=== PATIENT | female | born 1980 | race Caucasian/White ===

== ENCOUNTER 2018-01-06 13:58 | Emergency (ER) | payer OTHER ==
[2018-01-06 14:02] VITALS: BP 135/87; TEMP 98.8; BMI 37.9
[2018-01-06] MEDS ORDERED: ROCEPHIN IM STA (14:43)
[2018-01-06] MEDS ORDERED: LIDOCAINE HCL 1% SDV IM STA (14:43)
[2018-01-06] MEDS ORDERED: NORCO 10-325 PO STA (14:43)
--- NOTE | 2018-01-06 15:10 | ED.PDOC ---
General ED Provider: Dr. JEAN PIERRE BHAT Chief Complaint: Abdominal Pain Stated Complaint: suprapubic pain Time Seen by Physician: 14:00 Mode of Arrival: Walk-In Information Source: Patient Exam Limitations: No limitations Nursing and Triage Documentation Reviewed and Agree: Yes Reviewed sepsis parameters & appropriate labs ordered?: Yes System Inflammatory Response Syndrome: Not Applicable Sepsis Protocol: For patient's 13 years and over: Temp is 96.8 and below OR 101 and greater Pulse >90 BPM Resp >20/minute Acutely Altered Mental Status Are patient's symptoms suggestive of a new infection, such as: -Pneumonia -Skin, Soft Tissue -Endocarditis -UTI -Bone, Joint Infection -Implantable Device -Acute Abdominal Infection -Wound Infection -Meningitis -Blood Stream Catheter Infection -Unknown System Inflammatory Response Syndrome: Not Applicable Review of Systems - Review Of Systems Constitutional: Reports: No symptoms Eyes: Reports: No symptoms Ears, Nose, Mouth, Throat: Reports: No symptoms Respiratory: Reports: No symptoms Cardiac: Reports: No symptoms GI: Reports: No symptoms : Reports: Dysuria, Frequency Musculoskeletal: Reports: No symptoms Skin: Reports: No symptoms Neurological: Reports: No symptoms Endocrine: Reports: No symptoms Hematologic/Lymphatic: Reports: No symptoms All Other Systems: Reviewed and Negative Past Medical History - Past Medical History Previously Healthy: Yes Endocrine: Reports: None Cardiovascular: Reports: None Respiratory: Reports: Asthma Hematological: Reports: Anemia Gastrointestinal: Reports: None Genitourinary: Reports: None Neuro/Psych: Reports: None Musculoskeletal: Reports: None Cancer: Reports: None Last Menstrual Period: 12/16/17 - Surgical History General Surgical History: Reports: Cholecystectomy, Tonsillectomy - Family History Family History: Reports: Unknown - Social History Smoking Status: Never smoker Hx Substance Use: No Alcohol Screening: None Physical Exam - Physical Exam Appearance: Well-appearing, No pain distress, Well-nourished Eyes: KAMINI, EOMI, Conjunctiva clear ENT: Ears normal, Nose normal, Oropharynx normal Respiratory: Airway patent, Breath sounds clear, Breath sounds equal, Respirations nonlabored Cardiovascular: RRR, Pulses normal, No rub, No murmur GI/: Soft, Nontender, No masses, Bowel sounds normal, No Organomegaly Musculoskeletal: Normal strength, ROM intact, No edema, No calf tenderness Skin: Warm, Dry, Normal color Neurological: Sensation intact, Motor intact, Reflexes intact, Cranial nerves intact, Alert, Oriented Psychiatric: Affect appropriate, Mood appropriate Critical Care Note - Critical Care Note Total Time (mins): 0 Course - Course Orders, Labs, Meds: Lab Review 01/06/18 14:10 Urine Color Yellow Urine Clarity Slightly Urine pH 7.0 Ur Specific [place] 1.025 Urine Protein Negative Urine Glucose (UA) Negative Urine Ketones Negative Urine Blood 2+ Urine Nitrite Negative Urine Bilirubin Negative Urine Urobilinogen 1.0 Ur Leukocyte Esterase 1+ Urine Microscopic RBC 10-20 Urine Microscopic WBC 5-10 Ur Squamous Epith Cells 5-10 Urine Bacteria 1+ Urine Mucus 1+ Orders Category Date Time Status URINALYSIS C & S IF INDICATED Stat LAB 01/06/18 14:10 Completed URINE CULTURE Stat LAB 01/06/18 14:42 Received Ceftriaxone Sodium [Rocephin] MEDS 01/06/18 14:43 Discontinued 1 gm IM ONCE STA Hydrocodone Bit/Acetaminophen [[place] 10-325] MEDS 01/06/18 14:43 Discontinued 1 tab PO ONCE STA Lidocaine HCl/Pf [Lidocaine HCl 1% Sdv] MEDS 01/06/18 14:43 Discontinued 2.1 ml IM ONCE STA Medications Discontinued Medications Generic Name Dose Route Start Last Admin Trade Name Freq PRN Reason Stop Dose Admin Hydrocodone Bitart/Acetaminophen 1 tab 01/06/18 14:43 01/06/18 14:57 [place] 10-325 PO 01/06/18 14:44 1 tab ONCE STA Administration Ceftriaxone Sodium 1 gm 01/06/18 14:43 01/06/18 14:58 Rocephin IM 01/06/18 14:44 1 gm ONCE STA Administration Lidocaine HCl 2.1 ml 01/06/18 14:43 01/06/18 14:58 Lidocaine Hcl 1% Sdv IM 01/06/18 14:44 2.1 ml ONCE STA Administration Vital Signs: Temp Pulse Resp BP Pulse Ox 01/06/18 13:59 98.8 F 102 H 18 135/87 98 Departure - Departure Time of Disposition: 15:09 Disposition: HOME SELF-CARE Discharge Problem: Abdominal pain UTI (urinary tract infection) Qualifiers: Urinary tract infection type: site unspecified Instructions: Urinary Tract Infection in Women (ED) Condition: Good Pt referred to PMD for follow-up: Yes IPMP verified?: No Additional Instructions: Please call your Family Physician as soon as possible to schedule a follow-up appointment. Allergies/Adverse Reactions: Allergies azithromycin [From Zithromax Z-Lobo] Allergy (Severe, Verified 01/06/18 14:02) tongue swelling cephalexin monohydrate [From Keflex] Allergy (Severe, Verified 01/06/18 14:02) rash coconut oil Allergy (Severe, Verified 01/06/18 14:02) emesis pineapple [Pineapple] Allergy (Severe, Verified 01/06/18 14:02) emesis moxifloxacin [From Avelox] Adverse Reaction (Verified 01/06/18 14:02) Penicillins Adverse Reaction (Verified 01/06/18 14:02) Home Medications: Ambulatory Orders 1 [No Reported Medications] 01/06/18
== END 2018-01-06 15:16 | disposition home or self-care (01) ==
LOC: ED 13:58
DX: N39.0 Urinary tract infection, site not specified (principal); R10.30 Lower abdominal pain, unspecified
CPT/HCPCS: 81001; 87086; 87186; 96372; 99283

== ENCOUNTER 2019-05-30 10:59 | Observation (INO) ==
[2019-05-30 11:04] VITALS: BMI 37.5
[2019-05-30 11:50] LABS: URINE PREGNANCY TEST NEGATIVE (NEGATIVE)
--- NOTE | 2019-05-30 13:52 | ED.PDOC ---
General ED Provider: Dr. JEAN PIERRE BHAT Chief Complaint: Cough Stated Complaint: cough Time Seen by Physician: 11:00 Mode of Arrival: Walk-In Information Source: Patient Exam Limitations: No limitations Primary Care Provider: HANNA GUERRERO Nursing and Triage Documentation Reviewed and Agree: Yes Does patient meet sepsis criteria?: No System Inflammatory Response Syndrome: Not Applicable Sepsis Protocol: For patient's 13 years and over: Temp is 96.8 and below OR 101 and greater Pulse >90 BPM Resp >20/minute Acutely Altered Mental Status Are patient's symptoms suggestive of a new infection, such as: -Pneumonia -Skin, Soft Tissue -Endocarditis -UTI -Bone, Joint Infection -Implantable Device -Acute Abdominal Infection -Wound Infection -Meningitis -Blood Stream Catheter Infection -Unknown Respiratory Complaint Exam - Respiratory Complaint/Exam Onset/Duration: 1 day Symptoms Are: Still present Timing: Intermittent Initial Severity: Moderate Current Severity: Mild Location: Nose, Throat, Chest Character: Reports: Non-productive cough Aggravating: Reports: None Alleviating: Reports: Spontaneous resolution Associated Signs and Symptoms: Reports: URI, Nasal congestion. Denies: Rapid breathing, Dyspnea, Fever, Chills, Chest pain, Pleuritic chest pain, Wheezing, Hemoptysis, Dizziness, Calf pain, Calf swelling, Edema, Hoarseness, Sinus discomfort, Vomiting, Sore throat, Weight loss, Decreased oral intake, Increased thirst, Increased appetite, Increased urination Related History: Reports: Similar episode History of Healthcare-Acquired Pneumonia: No Related Surgical History: Reports: None Pulmonary Embolism Risk Factors: None Cardiac Risk Factors: Reports: None Pseudomonas Risk Factors: Reports: None Tuberculosis Risk Factors: Reports: None Status Asthmaticus Risk Factors: Reports: None Home Oxygen Use: No Recent Stress Test: No Recent Echo/LV Function: No Current Antibiotic Use: No Current Asthma Medication Use: No Respiratory Distress: None Inadequate Respiratory Effort: No Dysphagia Present: No Stridor Present: No JVD Present: No Accessory Muscle Use: No Retractions: Not Present Diminished Breath Sounds: No Sinus Tenderness: None Grunting Respirations: No Kussmaul Respirations: No Differential Diagnoses: Asthma, CHF, Pneumonia, Bronchitis, Lower Resp. Infection Quality Indicators For Pneumonia: SpO2 assessed, Empiric Antibiotic Rx, Vital signs, Mental status assessed Non-Traumatic Chest Pain Syncope: EKG Performed Review of Systems - Review Of Systems Constitutional: Reports: Chills, Fever, Malaise, Loss of appetite Eyes: Reports: No symptoms Ears, Nose, Mouth, Throat: Reports: No symptoms Respiratory: Reports: Cough Cardiac: Reports: No symptoms GI: Reports: No symptoms : Reports: No symptoms Musculoskeletal: Reports: No symptoms Skin: Reports: No symptoms Neurological: Reports: No symptoms Endocrine: Reports: No symptoms Hematologic/Lymphatic: Reports: No symptoms All Other Systems: Reviewed and Negative Past Medical History - Past Medical History Previously Healthy: Yes Endocrine: Reports: None Cardiovascular: Reports: None Respiratory: Reports: Asthma Hematological: Reports: Anemia Gastrointestinal: Reports: None Genitourinary: Reports: None Neuro/Psych: Reports: None Musculoskeletal: Reports: None Cancer: Reports: None Last Menstrual Period: may 10 - still on it. - Surgical History General Surgical History: Reports: Cholecystectomy, Tonsillectomy - Family History Family History: Reports: Unknown - Social History Smoking Status: Never smoker Hx Substance Use: No Alcohol Screening: None - Immunizations Tetanus Shot up to Date: Yes Physical Exam - Physical Exam Appearance: Ill-appearing Ill-appearing: Mild Pain Distress: Mild Eyes: KAMINI, EOMI, Conjunctiva clear ENT: Ears normal, Nose normal, Oropharynx normal Respiratory: Rhonchi Cardiovascular: RRR, Pulses normal, No rub, No murmur GI/: Soft, Nontender, No masses, Bowel sounds normal, No Organomegaly Musculoskeletal: Normal strength, ROM intact, No edema, No calf tenderness Skin: Warm, Dry, Normal color Neurological: Sensation intact, Motor intact, Reflexes intact, Cranial nerves intact, Alert, Oriented Psychiatric: Affect appropriate, Mood appropriate Interpretation - Radiology Interpretation Radiology Interpretation By: Radiologist Radiology Results: Positive (pneumonia, breast mass) Physician Notification - Case Discussed Physician Notified: [email or web address] Time of Notification: 16:21 Admit/Transition Orders Entered by ED Provider: Yes Admit To: Inpatient Critical Care Note - Critical Care Note Total Time (mins): 0 Course - Course Hematology/Chemistry: 05/30/19 11:27 05/30/19 11:27 Orders, Labs, Meds: Lab Review 05/30/19 05/30/19 05/30/19 11:22 11:27 11:27 WBC 6.82 RBC 4.24 Hgb 12.4 Hct 37.8 MCV 89.2 MCH 29.2 MCHC 32.8 RDW Coeff of [place] 13.4 Plt Count 253 Immature Gran % (Auto) 0.4 Neut % (Auto) 66.2 Lymph % (Auto) 22.6 [place] % (Auto) 8.9 Eos % (Auto) 1.5 Baso % (Auto) 0.4 Immature Gran # (Auto) 0.0 Neut # (Auto) 4.5 Lymph # (Auto) 1.5 [place] # (Auto) 0.6 Eos # (Auto) 0.1 Baso # (Auto) 0.0 Puncture Site O2 Saturation ABG pH ABG pCO2 ABG pO2 ABG HCO3 ABG Total CO2 ABG Base Excess FiO2 % Sodium 135.9 Potassium 4.05 Chloride 104.4 Carbon Dioxide 26.6 Anion Gap 8.95 BUN 9.0 Creatinine 0.68 Estimated GFR (MDRD) 96.00 BUN/Creatinine Ratio 13.23 Glucose 112.0 H Lactic Acid Calcium 8.72 Total Bilirubin 0.78 AST 76.9 H ALT 88.7 H Alkaline Phosphatase 155.7 H Total Protein 7.79 Albumin 4.15 Globulin 3.64 Albumin/Globulin Ratio 1.14 Procalcitonin Urine Color Urine Clarity Urine pH Ur Specific [place] Urine Protein Urine Glucose (UA) Urine Ketones Urine Blood Urine Nitrite Urine Bilirubin Urine Urobilinogen Ur Leukocyte Esterase Urine Microscopic WBC Ur Squamous Epith Cells Urine Bacteria Urine Test Influ A Molecular Assay Negative by naat Influ B Molecular Assay Negative by naat 05/30/19 05/30/19 05/30/19 11:27 11:27 11:32 WBC RBC Hgb Hct MCV MCH MCHC RDW Coeff of [place] Plt Count Immature Gran % (Auto) Neut % (Auto) Lymph % (Auto) [place] % (Auto) Eos % (Auto) Baso % (Auto) Immature Gran # (Auto) Neut # (Auto) Lymph # (Auto) [place] # (Auto) Eos # (Auto) Baso # (Auto) Puncture Site O2 Saturation ABG pH ABG pCO2 ABG pO2 ABG HCO3 ABG Total CO2 ABG Base Excess FiO2 % Sodium Potassium Chloride Carbon Dioxide Anion Gap BUN Creatinine Estimated GFR (MDRD) BUN/Creatinine Ratio Glucose Lactic Acid 0.76 Calcium Total Bilirubin AST ALT Alkaline Phosphatase Total Protein Albumin Globulin Albumin/Globulin Ratio Procalcitonin 0.07 Urine Color Yellow Urine Clarity Clear Urine pH 7.5 Ur Specific [place] 1.020 Urine Protein Trace Urine Glucose (UA) Negative Urine Ketones Negative Urine Blood Negative Urine Nitrite Negative Urine Bilirubin Negative Urine Urobilinogen 1.0 Ur Leukocyte Esterase 1+ Urine Microscopic WBC 5-10 Ur Squamous Epith Cells 10-20 Urine Bacteria 1+ Urine Test Influ A Molecular Assay Influ B Molecular Assay 05/30/19 05/30/19 11:32 15:19 WBC RBC Hgb Hct MCV MCH MCHC RDW Coeff of [place] Plt Count Immature Gran % (Auto) Neut % (Auto) Lymph % (Auto) [place] % (Auto) Eos % (Auto) Baso % (Auto) Immature Gran # (Auto) Neut # (Auto) Lymph # (Auto) [place] # (Auto) Eos # (Auto) Baso # (Auto) Puncture Site Rb O2 Saturation 95.0 ABG pH 7.451 H ABG pCO2 31.9 L ABG pO2 69.0 L ABG HCO3 22.2 ABG Total CO2 23 ABG Base Excess -2 FiO2 % 21.0 Sodium Potassium Chloride Carbon Dioxide Anion Gap BUN Creatinine Estimated GFR (MDRD) BUN/Creatinine Ratio Glucose Lactic Acid Calcium Total Bilirubin AST ALT Alkaline Phosphatase Total Protein Albumin Globulin Albumin/Globulin Ratio Procalcitonin Urine Color Urine Clarity Urine pH Ur Specific [place] Urine Protein Urine Glucose (UA) Urine Ketones Urine Blood Urine Nitrite Urine Bilirubin Urine Urobilinogen Ur Leukocyte Esterase Urine Microscopic WBC Ur Squamous Epith Cells Urine Bacteria Urine Test Negative Influ A Molecular Assay Influ B Molecular Assay Orders Category Date Time Status ABG DRAW REQUEST Stat CARDIO 05/30/19 15:19 Ordered EKG-(IP & OP ONLY) DAILY CARDIO 05/31/19 06:00 Ordered EKG-(IP & OP ONLY) DAILY CARDIO 06/01/19 06:00 Ordered EKG-(IP & OP ONLY) DAILY CARDIO 06/02/19 06:00 Ordered NEBULIZER TREATMENT Routine CARDIO 05/30/19 16:17 Ordered INTAKE & OUTPUT Q8HR CARE 05/30/19 16:17 Ordered Neuro Check [NEUROLOGICAL CHECKS] Q4HR CARE 05/30/19 16:18 Ordered VITAL SIGNS Q4HR CARE 05/30/19 16:17 Ordered REGULAR DIET DIETARY 05/30/19 Dinner Ordered ABG Stat LAB 05/30/19 15:19 Completed BLOOD CULTURE (ED ONLY) Stat LAB 05/30/19 11:27 Received CBC W/ AUTO DIFF DAILY@0600 LAB 05/31/19 06:00 Ordered CBC W/ AUTO DIFF DAILY@0600 LAB 06/01/19 06:00 Ordered CBC W/ AUTO DIFF Stat LAB 05/30/19 11:27 Completed COMPREHENSIVE METABOLIC PANEL DAILY@0600 LAB 05/31/19 06:00 Ordered COMPREHENSIVE METABOLIC PANEL DAILY@0600 LAB 06/01/19 06:00 Ordered COMPREHENSIVE METABOLIC PANEL Stat LAB 05/30/19 11:27 Completed CREATINE KINASE Q8H LAB 05/30/19 22:30 Ordered CREATINE KINASE Q8H LAB 05/31/19 06:30 Ordered FLU A/B MOLECULAR Stat LAB 05/30/19 11:22 Completed LACTIC ACID Stat LAB 05/30/19 11:27 Completed MOLECULAR GROUP A STREP Stat LAB 05/30/19 11:22 Completed PROCALCITONIN Stat LAB 05/30/19 11:27 Completed TROPONIN I Q8H LAB 05/30/19 22:30 Ordered TROPONIN I Q8H LAB 05/31/19 06:30 Ordered URINALYSIS C & S IF INDICATED Stat LAB 05/30/19 11:32 Completed URINE CULTURE Stat LAB 05/30/19 11:32 Received URINE Stat LAB 05/30/19 11:32 Completed Ceftriaxone 1 gm Vial [Rocephin 1 gm Vial] MEDS 05/30/19 15:19 Discontinued 1 gm IV ONCE STA Ceftriaxone 500 mg Vial [Rocephin 500 mg Vial] 500 mg MEDS 05/30/19 20:00 Active 0.9 % Sodium Chloride [Sodium Chloride] 50 ml IV ONCE Ipratropium/Albuterol Neb [Duoneb] MEDS 05/30/19 18:00 Ordered 1 vial NEB RTQ6H Methylprednisolone Sod Succ/Pf [Solu-Medrol 40 mg] MEDS 05/30/19 16:16 Stat 40 mg IVP ONCE STA Sodium Chloride 0.9% [Sodium Chloride] 1,000 ml MEDS 05/30/19 16:30 Ordered IV 75 mls/hr Vancomycin HCl [Vancomycin] 1 gm MEDS 05/30/19 16:16 Ordered 0.9 % Sodium Chloride [Sodium Chloride] [address] CHEST W/O CONTRAST Stat RADS 05/30/19 13:51 Completed Medications Generic Name Dose Route Start Last Admin Trade Name Freq PRN Reason Stop Dose Admin Albuterol/Ipratropium 1 vial 05/30/19 18:00 Duoneb NEB RTQ6H BRIANA Ceftriaxone Sodium 500 mg/ 50 mls @ 75 mls/hr 05/30/19 20:00 Sodium Chloride IV 05/30/19 20:39 ONCE ONE Vancomycin HCl 1 gm/ Sodium 250 mls @ 250 mls/hr 05/30/19 16:16 Chloride IV 05/30/19 17:15 ONCE STA Sodium Chloride 1,000 mls @ 75 mls/hr 05/30/19 16:30 Sodium Chloride IV .[id number] [facility], [facility]–1983 Discontinued Medications Generic Name Dose Route Start Last Admin Trade Name Freq PRN Reason Stop Dose Admin Ceftriaxone Sodium 1 gm 05/30/19 15:19 05/30/19 16:08 Rocephin 1 Gm Vial IV 05/30/19 15:20 1 gm ONCE STA Administration Methylprednisolone Sodium Succinate 40 mg 05/30/19 16:16 Solu-Medrol 40 Mg IVP 05/30/19 16:17 ONCE STA Vital Signs: Temp Pulse Resp BP Pulse Ox 05/30/19 14:03 100.3 F H 05/30/19 10:59 101.2 F H 104 H 20 127/87 94 L Departure - Departure Time of Disposition: 16:21 Disposition: HOME SELF-CARE Discharge Problem: Cough Pneumonia Qualifiers: Pneumonia type: due to unspecified organism Laterality: right Lung location: lower lobe of lung Qualified Code(s): J18.1 - Lobar pneumonia, unspecified organism Instructions: Community Acquired Pneumonia (ED) Condition: Good Pt referred to PMD for follow-up: Yes IPMP verified?: No Allergies/Adverse Reactions: Allergies azithromycin [From Zithromax Z-Lobo] Allergy (Severe, Verified 08/13/18 17:13) tongue swelling cephalexin monohydrate [From Keflex] Allergy (Severe, Verified 08/13/18 17:13) rash coconut oil Allergy (Severe, Verified 08/13/18 17:13) emesis pineapple [Pineapple] Allergy (Severe, Verified 08/13/18 17:13) emesis moxifloxacin [From Avelox] Adverse Reaction (Verified 08/13/18 17:13) Penicillins Adverse Reaction (Verified 08/13/18 17:13) Home Medications: Ambulatory Orders 1 [No Reported Medications] 08/13/18
--- NOTE | 2019-05-30 14:40 | CT ---
EXAM: CT chest without contrast HISTORY: Cough, congestion, lump in the right breast COMPARISON: None TECHNIQUE: CT chest performed without intravenous contrast. Coronal and sagittal reformatted images obtained. FINDINGS: Thoracic inlet unremarkable. Heart normal in size. No pericardial effusion. Aorta zak l in caliber. Small hiatal hernia. Evaluation for lymphadenopathy limited without contrast. Mildly enlarged subcarinal lymph node measures 1.4 cm. The patient status post cholecystectomy. Granuloma tous calcification in the spleen. No acute abnormalities of the bones. Central airway patent. No p leural effusion or pneumothorax. Multifocal consolidation in the right lower lobe with areas of nodu larity. Consolidation in the lingula. IMPRESSION: 1. Multifocal consolidation involving the right lower lobe and lingula, most consistent with pneumon ia. CT chest follow-up is recommended in 3 months to ensure resolution, given associated areas of no dularity on the right 2. Mild mediastinal lymphadenopathy, nonspecific. Recommend attention on follow-up. 3. Follow-up diagnostic mammogram and ultrasound would be recommended to evaluate lump in right [address].
[2019-05-30] MEDS ORDERED: ROCEPHIN 1 GM VIAL IV STA (15:19)
[2019-05-30] MEDS ORDERED: VANCOMYCIN 1 GM in SODIUM CHLORIDE 250 ML IV STA (16:16)
[2019-05-30] MEDS ORDERED: SOLU-MEDROL 40 MG IVP STA (16:16)
[2019-05-30] MEDS: DUONEB NEB SCH ×2 (17:12→23:15)
[2019-05-30] MEDS: SODIUM CHLORIDE 1,000 ML IV SCH (19:20)
[2019-05-30] MEDS ORDERED: ROCEPHIN 500 MG VIAL 500 MG in SODIUM CHLORIDE 50 ML IV ONE (20:00)
[2019-05-30] MEDS ORDERED: TORADOL IVP PRN (20:06)
[2019-05-31] MEDS: DUONEB NEB SCH ×4 (04:50→22:23)
[2019-05-31] MEDS ORDERED: TYLENOL PO PRN (08:35)
[2019-05-31] MEDS: D5W IV SCH (09:30)
[2019-05-31] MEDS: LEVAQUIN IV SCH (09:30)
--- NOTE | 2019-05-31 09:44 | PCM.PROG ---
Attending Provider: ATTENDING PROVIDER[facility] This patient is seen with Lizz Gutierrez, Nurse Practitioner. DATE OF SERVICE: 05/31/19 SUBJECTIVE: This 39 year old WHITE/ F was hospitalized 05/30/19. The patient is resting comfortably. She had fever yesterday in ER of 101 and a low grade fever through the evening. She has been coughing for several days. She has no primary care provider. REVIEW OF SYSTEMS: CONSTITUTIONAL: No night sweats. No fatigue, malaise, lethargy. Fever. HEENT: Eyes: No visual changes. No eye pain. No eye discharge. ENT: No runny nose. No epistaxis. No sinus pain. No odynophagia. No congestion. RESPIRATORY: Cough, no congestion. No hemoptysis. No shortness of breath. CARDIOVASCULAR: No angina symptoms. No CHF symptoms. No atypical chest pain for CAD. No palpitations. No orthopnea.. GASTROINTESTINAL: No abdominal pain. No nausea or vomiting. No diarrhea or constipation. No hematemesis. No hematochezia. GENITOURINARY: No urgency. No frequency. No dysuria. No hematuria. No obstructive symptoms. No discharge. No pain. No significant abnormal bleeding. MUSCULOSKELETAL: No musculoskeletal pain; no joint swelling. NEUROLOGICAL: Awake, alert, oriented to time, place and person. No headache. No neck pain. No syncope. No seizures. No dizziness. PSYCHIATRIC: Not anxious. No depression. No suicidal thoughts. No homicidal thoughts. SKIN: No rash. No lesions. No wounds. ENDOCRINE: No unexplained weight loss. No weight gain. HEMATOLOGIC/LYMPHATIC: No anemia. No purpura. No petechiae. No prolonged or excessive bleeding. No palpable lymph nodes. PHYSICAL EXAMINATION: GENERAL: The patient is awake, alert and oriented, lying in bed in no distress. VITAL SIGNS: Temperature 98.0 F, Pulse 93, Respiratory Rate 20, BP 122/76, Pulse Ox 98% HEENT: Head normocephalic, atraumatic. Eyes: Extraocular muscles are intact. Pupils are equal, round and reactive to light and accommodation. Ears: No lesions. Nose appeared normal. Throat: No exudate or erythema. NECK: Supple. No JVD, no carotid bruit. No lymphadenopathy or thyromegaly. LUNGS: Diminished breath sounds. Rales on right. Clear to auscultation. Percussion note normal. Chest symmetrical. HEART: S1, S2, no S3. No murmurs. No cyanosis or clubbing. No ascites. Pulses: Dorsalis pedis and posterior tibial pulses +1 to +2 both sides. ABDOMEN: Soft. Non-tender. Bowel sounds active. No CVA tenderness. No mass felt. EXTREMITIES: No edema. Full range of motion of all extremities, equal. NEUROLOGIC: No focal deficit. Cranial nerves II through XII are grossly intact. No headache, no double vision or headache. SKIN: Not dry. Intact. Turgor-normal. LYMPHATIC: No palpable lymph nodes/no lymphedema. MUSCULOSKELETAL: Normal joints with no swelling. Muscle tone is normal. LAB REVIEW: 05/31/19 06:24 05/31/19 06:24 05/31/19 06:24: Sodium 136.8, Potassium 3.63, Chloride 106.0, Carbon Dioxide 24.0, Anion Gap 10.43, BUN 9.8, Creatinine 0.54 L, Estimated GFR (MDRD) 126.00, BUN/Creatinine Ratio 18.14, Glucose 165.5 H D, Calcium 8.80, Total Bilirubin 0.51, AST 43.6 H D, ALT 70.7 H, Alkaline Phosphatase 137.7 H, Total Creatine Kinase 113.6, Troponin I < 0.012, Total Protein 7.81, Albumin 4.05, Globulin 3.76, Albumin/Globulin Ratio 1.07 05/31/19 06:24: WBC 5.93, RBC 4.12 L, Hgb 11.8 L, Hct 36.6 L, MCV 88.8, MCH 28.6 , MCHC 32.2, RDW Coeff of [place]ida 13.3, Plt Count 244, Immature Gran % (Auto) 1.2, Neut % (Auto) 73.1, Lymph % (Auto) 16.4, [place] % (Auto) 9.1, Eos % (Auto) 0.0, Baso % (Auto) 0.2, Immature Gran # (Auto) 0.1, Neut # (Auto) 4.3, Lymph # (Auto ) 1.0, [place] # (Auto) 0.5, Eos # (Auto) 0.0, Baso # (Auto) 0.0 05/30/19 22:30: Total Creatine Kinase 148.4 H, CK-MB (CK-2) < 0.220, CK-MB (CK-2 ) % 0.1400, Troponin I < 0.012 05/30/19 15:19: Puncture Site Rb, O2 Saturation 95.0, ABG pH 7.451 H, ABG pCO2 31.9 L, ABG pO2 69.0 L, ABG HCO3 22.2, ABG Total CO2 23, ABG Base Excess -2, FiO2 % 21.0 05/30/19 11:32: Urine Test Negative 05/30/19 11:32: Urine Color Yellow, Urine Clarity Clear, Urine pH 7.5, Ur Specific [place] 1.020, Urine Protein Trace, Urine Glucose (UA) Negative, Urine Ketones Negative, Urine Blood Negative, Urine Nitrite Negative, Urine Bilirubin Negative, Urine Urobilinogen 1.0, Ur Leukocyte Esterase 1+, Urine Microscopic WBC 5-10, Ur Squamous Epith Cells 10-20, Urine Bacteria 1+ 05/30/19 11:27: Lactic Acid 0.76 05/30/19 11:27: Procalcitonin 0.07 05/30/19 11:27: Sodium 135.9, Potassium 4.05, Chloride 104.4, Carbon Dioxide 26.6, Anion Gap 8.95, BUN 9.0, Creatinine 0.68, Estimated GFR (MDRD) 96.00, BUN/ Creatinine Ratio 13.23, Glucose 112.0 H, Calcium 8.72, Total Bilirubin 0.78, AST 76.9 H, ALT 88.7 H, Alkaline Phosphatase 155.7 H, Total Protein 7.79, Albumin 4.15, Globulin 3.64, Albumin/Globulin Ratio 1.14 05/30/19 11:27: WBC 6.82, RBC 4.24, Hgb 12.4, Hct 37.8, MCV 89.2, MCH 29.2, MCHC 32.8, RDW Coeff of [place] 13.4, Plt Count 253, Immature Gran % (Auto) 0.4, Neut % (Auto) 66.2, Lymph % (Auto) 22.6, [place] % (Auto) 8.9, Eos % (Auto) 1.5, Baso % (Auto) 0.4, Immature Gran # (Auto) 0.0, Neut # (Auto) 4.5, Lymph # (Auto ) 1.5, [place] # (Auto) 0.6, Eos # (Auto) 0.1, Baso # (Auto) 0.0 05/30/19 11:22: Influ A Molecular Assay Negative by naat, Influ B Molecular Assay Negative by naat ASSESSMENT: Please see below. 1. Right lower lobe pneumonia 2. Fever 3. Right breast mass per CT. The patient stated she had lumpectomy right breast last year at [facility]. No mamogramy since 3. Abnormal U/A, culture pending. PLAN: 1. Levaquin 750mg IV daily 2. Solu-cortef 100mg IV Q 12 3. Stop IV fluids after this bag 4. Tussionex one teaspoon BID PRN 5. Tylenol 650mg for fever greater than 100 6. Toradol Q 8 hours PRN 7. Lipid panel Plan and coordination of the patient's care discussed in the presence of Smelter Liner and nurse. SCRIBED BY: Hayes WETZEL scribed while in presence of service performed by Dr. Chen/Lizz Gutierrez APRN on 05/31/19 ([id number])
[2019-05-31] MEDS: SOLU-CORTEF 100 MG IVP SCH ×2 (10:00→20:20)
[2019-05-31] MEDS: PROTONIX PO SCH (10:01)
[2019-05-31] MEDS: TORADOL IVP PRN ×2 (10:01→19:43)
[2019-05-31] MEDS: SODIUM CHLORIDE 1,000 ML IV SCH (10:22)
--- NOTE | 2019-05-31 13:10 | PN ---
DATE OF SERVICE: 05/30/19 SUBJECTIVE: Hospitalist patient admitted through the emergency room. 38 year old female came to the emergency room with cough and congestion, fever and chills. The patient had fever of 102. Radiographic findings suggestive of right sided pneumonia. The patient is obese, not in distress. She has a lot of allergies to a lot of antibiotics. Zithromax causes her to swell, tongue. Except for that rest of them all very minimal significance. ASSESSMENT: 1. Acute bronchitis/pneumonitis 2. History of smoking 3. Morbid obesity. PLAN: 1. Give IV antibiotics, steroids and NEBS. TIME SPENT: More than 30 minutes. Plan and coordination of the patient's care discussed in the presence of nurse. MILLIE
[2019-05-31] MEDS: TUSSIONEX PO PRN (13:51)
[2019-06-01] MEDS: DUONEB NEB SCH ×4 (04:50→23:50)
[2019-06-01] MEDS: PROTONIX PO SCH (05:37)
[2019-06-01] MEDS: TUSSIONEX PO PRN ×2 (05:40→20:27)
--- NOTE | 2019-06-01 07:35 | HP ---
DATE OF SERVICE: 05/30/19 HISTORY OF PRESENT ILLNESS: This is a 39-year-old white female who presents to the emergency room with cough and congestion for the past three days. She has been running a fever at home of up to 102. PAST MEDICAL HISTORY: Obesity History of right breast mass one year ago, status post lumpectomy She has no regular PCP, has not seen a regular PCP in about one year PAST SURGICAL HISTORY: Status post cholecystectomy Status post tonsillectomy, adenoidectomy Status post right lumpectomy which was benign REVIEW OF SYSTEMS: CONSTITUTIONAL: Positive for fever, chills and malaise. No night sweats. No lethargy. No fever or chills. HEENT: Eyes: No visual changes. No eye pain. No eye discharge. ENT: No runny nose. No epistaxis. No sinus pain. No sore throat. No odynophagia. No ear pain. No congestion. RESPIRATORY: Cough and shortness of breath. No hemoptysis. CARDIOVASCULAR: No angina symptoms. No CHF symptoms. No atypical chest pain for CAD. No palpitations. No PND. No orthopnea. GASTROINTESTINAL: No abdominal pain. No nausea or vomiting. No diarrhea or constipation. No hematemesis. No hematochezia. GENITOURINARY: No urgency. No frequency. No dysuria. No hematuria. No obstructive symptoms. No discharge. No pain. No significant abnormal bleeding. MUSCULOSKELETAL: No musculoskeletal pain. No joint swelling. No arthritis. NEUROLOGICAL: No headache. No neck pain. No syncope. No seizures. No dizziness. PSYCHIATRIC: Not anxious. No depression. No suicidal thoughts. No homicidal thoughts. SKIN: No rash. No lesions. No wounds. ENDOCRINE: No unexplained weight loss. No weight gain. HEMATOLOGIC/LYMPHATIC: No anemia. No purpura. No petechiae. No prolonged or excessive bleeding. No palpable lymph nodes. PERSONAL/FAMILY/SOCIAL HISTORY: She is a nonsmoker. Denies alcohol or illicit drug use. MEDICATIONS: (HOME) None ALLERGIES: CEPHALEXIN (FROM [email or web address]), PENICILLINS, COCONUT OIL, AZITHROMYCIN, PINEAPPLE, MOXIFLOXACIN PHYSICAL EXAMINATION: VITAL SIGNS: Temperature 101.2, heart rate 104, respirations 20, blood pressure 127/87, pulse ox 94% on room air. HEENT: Head normocephalic, atraumatic. Eyes: Extraocular muscles are intact. Pupils are equal, round and reactive to light and accommodation. Ears: No lesions. Nose appeared normal. Throat: No exudate or erythema. NECK: Supple. No JVD, no carotid bruit. No lymphadenopathy or thyromegaly. LUNGS: Diminished breath sounds, rales on the right. Percussion note normal. Chest symmetrical. HEART: S1, S2, no S3. No murmurs. No cyanosis or clubbing. No ascites. Pulses: Dorsalis pedis and posterior tibial pulses +1 to +2 bilaterally. ABDOMEN: Soft. Nontender. Bowel sounds active. No CVA tenderness. No mass felt. EXTREMITIES: No edema. Full range of motion of all extremities, equal. NEUROLOGIC: No focal deficit. Cranial nerves II through XII are grossly intact. No headache, no double vision or headache. SKIN: Not dry. Intact. Turgor - normal. LYMPHATIC: No palpable lymph nodes/no lymphedema. MUSCULOSKELETAL: Normal joints with no swelling. Muscle tone is normal. CT of the chest reveals right lower lobe multifocal pneumonia, mass right breast. White count 6.8, hemoglobin 12.4, hematocrit 37.8, platelets 253. Sodium 135, potassium 4.0, BUN 9, creatinine 0.68. AST 76, ALT 88, alkaline phosphatase 155. ASSESSMENT: 1. ACUTE RIGHT LOWER LOBE PNEUMONIA 2. FEVER 3. ABNORMAL UA, CULTURE PENDING 4. RIGHT BREAST MASS PLAN: 1. Routine telemetry orders 2. CBC, CMP daily 3. NS IV at 75 cc/hr 4. Oxygen 1 to 2L/NC p.r.n. 5. Start Levaquin 500 mg IV daily 6. Solu-Medrol 100 mg IV q.12hr 7. Duonebs q.6hr BRIANA 8. The patient had been evaluated, had her lumpectomy at [facility] We will refer her back for further evaluation. She states that she did not have a repeat mammogram following her lumpectomy. It is unclear whether the lesion seen on the CT is just residual from the lumpectomy or something more. Again, will schedule her an appointment prior to discharge. TIME SPENT: More than 70 minutes. [facility] HOSPITALSimon
--- NOTE | 2019-06-01 08:38 | PCM.PROG ---
Attending Provider: ATTENDING PROVIDER: [facility] DATE OF SERVICE: 06/01/19 SUBJECTIVE: This 39 year old WHITE/ F was hospitalized 05/30/19 with right sided pneumonia. The patient's condition is stable. No fever or chills. The patient still has hoarseness of voice with mild cough. REVIEW OF SYSTEMS: CONSTITUTIONAL: No night sweats. No fatigue, malaise, lethargy. No fever or chills. HEENT: Eyes: No visual changes. No eye pain. No eye discharge. ENT: No runny nose. No epistaxis. No sinus pain. No odynophagia. No congestion. RESPIRATORY: No cough, no congestion. No hemoptysis. No shortness of breath. CARDIOVASCULAR: No angina symptoms. No CHF symptoms. No atypical chest pain for CAD. No palpitations. No orthopnea.. GASTROINTESTINAL: No abdominal pain. No nausea or vomiting. No diarrhea or constipation. No hematemesis. No hematochezia. GENITOURINARY: No urgency. No frequency. No dysuria. No hematuria. No obstructive symptoms. No discharge. No pain. No significant abnormal bleeding. MUSCULOSKELETAL: No musculoskeletal pain; no joint swelling. NEUROLOGICAL: Awake, alert, oriented to time, place and person. No headache. No neck pain. No syncope. No seizures. No dizziness. PSYCHIATRIC: Not anxious. No depression. No suicidal thoughts. No homicidal thoughts. SKIN: No rash. No lesions. No wounds. ENDOCRINE: No unexplained weight loss. No weight gain. HEMATOLOGIC/LYMPHATIC: No anemia. No purpura. No petechiae. No prolonged or excessive bleeding. No palpable lymph nodes. PHYSICAL EXAMINATION: GENERAL: The patient is awake, alert and oriented, lying in bed in no distress. VITAL SIGNS: Temperature 97.6 F, Pulse 86, Respiratory Rate 18, BP 116/78, Pulse Ox 98% HEENT: Head normocephalic, atraumatic. Eyes: Extraocular muscles are intact. Pupils are equal, round and reactive to light and accommodation. Ears: No lesions. Nose appeared normal. Throat: No exudate or erythema. NECK: Supple. No JVD, no carotid bruit. No lymphadenopathy or thyromegaly. LUNGS: Decreased breath sounds bilaterally with expiratory wheezing on right side. Clear to auscultation. Percussion note normal. Chest symmetrical. HEART: S1, S2, no S3. No murmurs. No cyanosis or clubbing. No ascites. Pulses: Dorsalis pedis and posterior tibial pulses +1 to +2 both sides. ABDOMEN: Soft. Non-tender. Bowel sounds active. No CVA tenderness. No mass felt. EXTREMITIES: No edema. Full range of motion of all extremities, equal. NEUROLOGIC: No focal deficit. Cranial nerves II through XII are grossly intact. No headache, no double vision or headache. SKIN: Warm and dry. Intact. Turgor-normal. LYMPHATIC: No palpable lymph nodes/no lymphedema. MUSCULOSKELETAL: Normal joints with no swelling. Muscle tone is normal. LAB REVIEW: 06/01/19 05:31 06/01/19 05:31 06/01/19 05:31: Sodium 139.2, Potassium 3.84, Chloride 106.7, Carbon Dioxide 26.2, Anion Gap 10.14, BUN 11.6, Creatinine 0.67, Estimated GFR (MDRD) 98.00, BUN/Creatinine Ratio 17.31, Glucose 133.1 H, Calcium 8.93, Total Bilirubin 0.42 , AST 24.4, ALT 53.9 H, Alkaline Phosphatase 126.3 H, Total Protein 7.67, Albumin 3.99, Globulin 3.68, Albumin/Globulin Ratio 1.08 06/01/19 05:31: WBC 7.68, RBC 4.18 L, Hgb 12.1, Hct 37.9, MCV 90.7, MCH 28.9, MCHC 31.9, RDW Coeff of [place] 13.7, Plt Count 252, Immature Gran % (Auto) 1.4, Neut % (Auto) 71.2, Lymph % (Auto) 21.0, [place] % (Auto) 6.1, Eos % (Auto) 0.0, Baso % (Auto) 0.3, Immature Gran # (Auto) 0.1, Neut # (Auto) 5.5, Lymph # (Auto ) 1.6, [place] # (Auto) 0.5, Eos # (Auto) 0.0, Baso # (Auto) 0.0 05/31/19 06:24: Thyroxine (T4) 9.1 05/31/19 06:24: Triglycerides 71.5, Cholesterol 182.5, LDL Cholesterol, Calc 122 , VLDL Cholesterol 14, HDL Cholesterol 46.6, Cholesterol/HDL Ratio 3.9 L, TSH 0.323 L 05/31/19 06:24: Hemoglobin A1c 5.55 ASSESSMENT: Please see below. 1. Acute pneumonia, right sided 2. Questionable history of bronchial asthma 3. Breast mass PLAN: 1. Continue same treatment with antibiotics 2. ProAir HFA inhaler two puffs four times a day Plan and coordination of the patient's care discussed in the presence of Motor Adjuster and nurse. SCRIBED BY: LAURA ROMERO Mobile [employer] Specialist scribed while in presence of service performed by Dr. FELDMAN [facility] on 06/01/19 ([id number])
[2019-06-01] MEDS: PROAIR HFA IH SCH ×2 (08:55→12:31)
[2019-06-01] MEDS: D5W IV SCH (08:56)
[2019-06-01] MEDS: SOLU-CORTEF 100 MG IVP SCH ×2 (08:56→20:27)
[2019-06-01] MEDS: LEVAQUIN IV SCH (08:56)
--- NOTE | 2019-06-01 10:33 | PN ---
DATE OF SERVICE: 05/31/19 SUBJECTIVE: The patient was seen and examined with Nurse Practitioner. The patient is looking very comfortably. Still complaining of cough but there is no fever or chills. Her appetite seems to have improved. TIME SPENT: More than 30 minutes. Plan and coordination of the patient's care discussed in the presence of nurse. MILLIE
[2019-06-01] MEDS ORDERED: PROAIR HFA IH PRN (15:41)
[2019-06-01] MEDS: TORADOL IVP PRN (20:27)
[2019-06-02] MEDS: DUONEB NEB SCH ×4 (04:30→22:27)
[2019-06-02] MEDS: PROTONIX PO SCH (05:38)
[2019-06-02] MEDS: D5W IV SCH (08:09)
[2019-06-02] MEDS: LEVAQUIN IV SCH (08:09)
[2019-06-02] MEDS: SOLU-CORTEF 100 MG IVP SCH ×2 (08:09→20:47)
--- NOTE | 2019-06-02 08:28 | PCM.PROG ---
Attending Provider: ATTENDING PROVIDER[facility] This patient is seen with Lizz Gutierrez, Nurse Practitioner. DATE OF SERVICE: 06/02/19 SUBJECTIVE: This 39 year old WHITE/ F was hospitalized 05/30/19. The patient is resting comfortably. She is still coughing with slight sore throat. Clinically she has improved. WBC and fever both have improved. EKG and chest x-ray today. REVIEW OF SYSTEMS: CONSTITUTIONAL: No night sweats. No fatigue, malaise, lethargy. No fever or chills. Weakness. HEENT: Eyes: No visual changes. No eye pain. No eye discharge. ENT: No runny nose. No epistaxis. No sinus pain. No odynophagia. No congestion. RESPIRATORY: Cough, no congestion. No hemoptysis. No shortness of breath. CARDIOVASCULAR: No angina symptoms. No CHF symptoms. No atypical chest pain for CAD. No palpitations. No orthopnea.. GASTROINTESTINAL: No abdominal pain. No nausea or vomiting. No diarrhea or constipation. No hematemesis. No hematochezia. GENITOURINARY: No urgency. No frequency. No dysuria. No hematuria. No obstructive symptoms. No discharge. No pain. No significant abnormal bleeding. MUSCULOSKELETAL: No musculoskeletal pain; no joint swelling. NEUROLOGICAL: Awake, alert, oriented to time, place and person. No headache. No neck pain. No syncope. No seizures. No dizziness. PSYCHIATRIC: Not anxious. No depression. No suicidal thoughts. No homicidal thoughts. SKIN: No rash. No lesions. No wounds. ENDOCRINE: No unexplained weight loss. No weight gain. HEMATOLOGIC/LYMPHATIC: No anemia. No purpura. No petechiae. No prolonged or excessive bleeding. No palpable lymph nodes. PHYSICAL EXAMINATION: GENERAL: The patient is awake, alert and oriented, lying in bed in no distress. VITAL SIGNS: Temperature 97.6 F, Pulse 94, Respiratory Rate 16, BP 121/68, Pulse Ox 96% HEENT: Head normocephalic, atraumatic. Eyes: Extraocular muscles are intact. Pupils are equal, round and reactive to light and accommodation. Ears: No lesions. Nose appeared normal. Throat: No exudate or erythema. NECK: Supple. No JVD, no carotid bruit. No lymphadenopathy or thyromegaly. LUNGS: Diminished breath sounds. Clear to auscultation. Percussion note normal. Chest symmetrical. HEART: S1, S2, no S3. No murmurs. No cyanosis or clubbing. No ascites. Pulses: Dorsalis pedis and posterior tibial pulses +1 to +2 both sides. ABDOMEN: Soft. Non-tender. Bowel sounds active. No CVA tenderness. No mass felt. EXTREMITIES: No edema. Full range of motion of all extremities, equal. NEUROLOGIC: No focal deficit. Cranial nerves II through XII are grossly intact. No headache, no double vision or headache. SKIN: Not dry. Intact. Turgor-normal. LYMPHATIC: No palpable lymph nodes/no lymphedema. MUSCULOSKELETAL: Normal joints with no swelling. Muscle tone is normal. LAB REVIEW: 06/02/19 07:00 06/02/19 07:00 06/02/19 07:00: Sodium 135.0, Potassium 3.93, Chloride 106.6, Carbon Dioxide 23.7, Anion Gap 8.63, BUN 15.9, Creatinine 0.53 L, Estimated GFR (MDRD) 128.00, BUN/Creatinine Ratio 30.00, Glucose 186.2 H, Calcium 8.63, Total Bilirubin 0.33 , AST 18.2, ALT 35.9 H, Alkaline Phosphatase 101.8, Total Protein 6.71, Albumin 3.53, Globulin 3.18, Albumin/Globulin Ratio 1.11 06/02/19 07:00: WBC 8.31, RBC 3.82 L, Hgb 11.1 L, Hct 37.8, MCV 99.0 D, MCH 29.1, MCHC 29.4 L, RDW Coeff of [place] 13.8, Plt Count 216, Immature Gran % (Auto) 1.9, Neut % (Auto) 67.5, Lymph % (Auto) 24.5, [place] % (Auto) 5.2, Eos % (Auto) 0.1, Baso % (Auto) 0.8, Immature Gran # (Auto) 0.2, Neut # (Auto) 5.6, Lymph # ( Auto) 2.0, [place] # (Auto) 0.4, Eos # (Auto) 0.0, Baso # (Auto) 0.1 ASSESSMENT: Please see below. 1. Acute pneumonia, right sided 2. Questionable history of bronchial asthma 3. Breast mass PLAN: 1. Chest x-ray 2. EKG 3. Schedule followup appointment with [facility] for breast mass 4. Schedule followup with [facility] for followup next week. Plan and coordination of the patient's care discussed in the presence of Honey Blender and nurse. SCRIBED BY: Linda WETZEList scribed while in presence of service performed by Dr. Chen/Lizz Gutierrez APRN on 06/02/19 ([id number])
--- NOTE | 2019-06-02 15:42 | DI ---
EXAM: Chest two views HISTORY: Shortness of breath FINDINGS: Compared to 09/28/2015. Heart size remains within normal limits. A few discoid opacities are seen in the right perihilar and left base, new since previous exam. Lungs are otherwise clear. Normal vascularity. No pleural fluid. IMPRESSION: 1. Some discoid opacities are seen which could represent areas of pneumonia given the patient's hist ory. Consider follow-up radiography to assure clearance.
[2019-06-03] MEDS: DUONEB NEB SCH ×2 (04:50→11:10)
[2019-06-03 04:57] VITALS: BP 117/72; TEMP 97.7
[2019-06-03] MEDS: PROTONIX PO SCH (05:56)
--- NOTE | 2019-06-03 08:54 | PCM.PROG ---
Attending Provider: ATTENDING PROVIDER: [facility] This patient is seen with Lizz Gutierrez, Nurse Practitioner. DATE OF SERVICE: 06/03/19 SUBJECTIVE: This 39 year old WHITE/ F was hospitalized 05/30/19. The patient's cough has improved. Chest x-ray showed improved. She has been afebrile. She has been eating 75-100% of her meals. The patient is not short of breath and stable for discharge. REVIEW OF SYSTEMS: CONSTITUTIONAL: No night sweats. Fatigue. No fever or chills. HEENT: Eyes: No visual changes. No eye pain. No eye discharge. ENT: No runny nose. No epistaxis. No sinus pain. No odynophagia. No congestion. RESPIRATORY: Cough, no congestion. No hemoptysis. No shortness of breath. CARDIOVASCULAR: No angina symptoms. No CHF symptoms. No atypical chest pain for CAD. No palpitations. No orthopnea.. GASTROINTESTINAL: No abdominal pain. No nausea or vomiting. No diarrhea or constipation. No hematemesis. No hematochezia. GENITOURINARY: No urgency. No frequency. No dysuria. No hematuria. No obstructive symptoms. No discharge. No pain. No significant abnormal bleeding. MUSCULOSKELETAL: No musculoskeletal pain; no joint swelling. NEUROLOGICAL: Awake, alert, oriented to time, place and person. No headache. No neck pain. No syncope. No seizures. No dizziness. PSYCHIATRIC: Not anxious. No depression. No suicidal thoughts. No homicidal thoughts. SKIN: No rash. No lesions. No wounds. ENDOCRINE: No unexplained weight loss. No weight gain. HEMATOLOGIC/LYMPHATIC: No anemia. No purpura. No petechiae. No prolonged or excessive bleeding. No palpable lymph nodes. PHYSICAL EXAMINATION: GENERAL: The patient is awake, alert and oriented, lying/sitting in bed in no distress. VITAL SIGNS: Temperature 97.7 F, Pulse 86, Respiratory Rate 16, BP 117/72, Pulse Ox 98% HEENT: Head normocephalic, atraumatic. Eyes: Extraocular muscles are intact. Pupils are equal, round and reactive to light and accommodation. Ears: No lesions. Nose appeared normal. Throat: No exudate or erythema. NECK: Supple. No JVD, no carotid bruit. No lymphadenopathy or thyromegaly. LUNGS: Diminished breath sounds. Faint rhonchi on right side. Clear to auscultation. Percussion note normal. Chest symmetrical. HEART: S1, S2, no S3. No murmurs. No cyanosis or clubbing. No ascites. Pulses: Dorsalis pedis and posterior tibial pulses +1 to +2 both sides. ABDOMEN: Soft. Non-tender. Bowel sounds active. No CVA tenderness. No mass felt. EXTREMITIES: No edema. Full range of motion of all extremities, equal. NEUROLOGIC: No focal deficit. Cranial nerves II through XII are grossly intact. No headache, no double vision or headache. SKIN: Not dry. Intact. Turgor-normal. LYMPHATIC: No palpable lymph nodes/no lymphedema. MUSCULOSKELETAL: Normal joints with no swelling. Muscle tone is normal. LAB REVIEW: 06/03/19 04:45 06/03/19 04:45 06/03/19 04:45: Sodium 136.1, Potassium 4.31, Chloride 104.7, Carbon Dioxide 27.6, Anion Gap 8.11, BUN 13.3, Creatinine 0.49 L, Estimated GFR (MDRD) 141.00, BUN/Creatinine Ratio 27.14, Glucose 134.2 H D, Calcium 8.56, Total Bilirubin 0.53, AST 24.0, ALT 29.9, Alkaline Phosphatase 95.1, Total Protein 6.79, Albumin 3.52, Globulin 3.27, Albumin/Globulin Ratio 1.07 06/03/19 04:45: WBC 10.23 H, RBC 3.95 L, Hgb 11.4 L, Hct 35.6 L, MCV 90.1 D, MCH 28.9, MCHC 32.0, RDW Coeff of Khalida 13.5, Plt Count 260, Immature Gran % (Auto ) 2.5, Neut % (Auto) 70.8, Lymph % (Auto) 21.9, Davidson % (Auto) 4.3, Eos % (Auto) 0.0, Baso % (Auto) 0.5, Immature Gran # (Auto) 0.3, Neut # (Auto) 7.2 H, Lymph # (Auto) 2.2, Davidson # (Auto) 0.4, Eos # (Auto) 0.0, Baso # (Auto) 0.1 ASSESSMENT: Please see below. 1. Right lower lobe pneumonia, improving 2. Right breast mass, the patient has appointment with [facility]. PLAN: 1. Discharge home 2. Levaquin 750mg daily for 5 days 3. Prednisone 10mg PO twice a day for 5 days 4. ProAir inhaler three to four times daily until cough resolves 5. The patient has appointment at [facility] 06/09/19 for evaluation of right breast mass. 6. Followup appointment with Leonor Osei with repeat chest x-ray ordered 7. Return to ER if signs or symptoms worsen or return of fever. Plan and coordination of the patient's care discussed in the presence of Waste Examiner and nurse. SCRIBED BY: Linda WETZEList scribed while in presence of service performed by Dr. Calvo/Lizz Gutierrez APRN on 06/03/19 ([id number])
[2019-06-03] MEDS: LEVAQUIN IV SCH (09:44)
[2019-06-03] MEDS: D5W IV SCH (09:44)
[2019-06-03] MEDS: SOLU-CORTEF 100 MG IVP SCH (09:44)
--- NOTE | 2019-06-03 11:11 | CM.DICTOOL ---
ADMISSION: 05/30/19 16:45 DISCHARGE: 2018 DATE OF SERVICE: 06/03/19 FINAL DIAGNOSIS PNEUMONIA, RIGHT LOWER LOBE AND LINGULA MIGRAINES GERD RIGHT BREAST LUMP CHOLECYSTECTOMY TONSILLECTOMY LUMPECTOMY, RIGHT BREAST 2018 ([place]) LAST VITALS Temp Pulse Resp BP Pulse Ox 97.7 F 86 16 117/72 98 06/03/19 04:54 06/03/19 04:54 06/03/19 04:54 06/03/19 04:54 06/03/19 04:54 TAKE THESE MEDICATIONS AT HOME Albuterol Sulfate (Proair Hfa) 2 puff IH QID PRN PRN Reason: shortness of breath/wheezing Prednisone 10 mg PO BID BRIANA for 5 days Levaquin 500 MG PO DAILY FOR 5 DAYS ALLERGIES azithromycin [From Zithromax Z-Lobo] Allergy (Severe, Verified 08/13/18 17:13) tongue swelling cephalexin monohydrate [From Keflex] Allergy (Severe, Verified 08/13/18 17:13) rash coconut oil Allergy (Severe, Verified 08/13/18 17:13) emesis pineapple [Pineapple] Allergy (Severe, Verified 08/13/18 17:13) emesis moxifloxacin [From Avelox] Adverse Reaction (Verified 08/13/18 17:13) Penicillins Adverse Reaction (Verified 08/13/18 17:13) DISCONTINUED MEDICATIONS NONE NEW PRESCRIPTIONS: PREDNISONE 10 MG BID FOR 5 DAYS TAKE WITH FOOD LEVAQUIN 500 MG DAILY FOR 5 DAYS PROAIR HFA 2 PUFFS TID UNTIL COUGH SUBSIDES AND THEN QID PRN SMOKING: NOT APPLICABLE DISEASE SPECIFIC EDUCATION: PNEUMONIA PRESCRIPTIONS STEROIDS AND RISK OF GI IRRITATION LAB REVIEW: 06/03/19 04:45 06/03/19 04:45 06/03/19 04:45: Sodium 136.1, Potassium 4.31, Chloride 104.7, Carbon Dioxide 27.6, Anion Gap 8.11, BUN 13.3, Creatinine 0.49 L, Estimated GFR (MDRD) 141.00, BUN/Creatinine Ratio 27.14, Glucose 134.2 H D, Calcium 8.56, Total Bilirubin 0.53, AST 24.0, ALT 29.9, Alkaline Phosphatase 95.1, Total Protein 6.79, Albumin 3.52, Globulin 3.27, Albumin/Globulin Ratio 1.07 06/03/19 04:45: WBC 10.23 H, RBC 3.95 L, Hgb 11.4 L, Hct 35.6 L, MCV 90.1 D, MCH 28.9, MCHC 32.0, RDW Coeff of Khalida 13.5, Plt Count 260, Immature Gran % (Auto ) 2.5, Neut % (Auto) 70.8, Lymph % (Auto) 21.9, Colbert % (Auto) 4.3, Eos % (Auto) 0.0, Baso % (Auto) 0.5, Immature Gran # (Auto) 0.3, Neut # (Auto) 7.2 H, Lymph # (Auto) 2.2, Colbert # (Auto) 0.4, Eos # (Auto) 0.0, Baso # (Auto) 0.1 PLAN: DISCHARGE HOME DIET: REGULAR TOLERATED, DRINK LOTS OF LIQUIDS (WATER) ACTIVITY: AVOID OUTSIDE ACTIVITY IN EXTREME HEAT/HUMIDITY REST THIS WEEK-END AVOID CROWDS AN APPOINTMENT IS SCHEDULED WITH RICH VU APRN ON AT 2:30 PLEASE HAVE CXR DONE AT [facility] PRIOR TO YOUR APPOINTMENT AN APPOINTMENT IS SCHEDULED AT [facility] ON AT 10:30 FOR A BILATERAL MAMMOGRAM, FOLLOWED BY A RIGHT BREAST ULTRASOUND AND THEN AN APPOINTMENT WITH THE PROVIDER, RADHA DAMON. MS. BARRON IS ALERT AND ORIENTED X 3. MS. BARRON IS AGREEABLE TO PLANS FOR DISCHARGE. SHE HAS BEEN ADVISED OF ALL FOLLOW-UP APPOINTMENTS AND IS AGREEABLE. SHE IS INDEPENDENT WITH ACTIVITIES OF DAILY LIVING. SHE IS AMBULATORY AND DOES NOT REQUIRE AN ASSISTIVE DEVICE OR USE OF OXYGEN WITH ACTIVITY. SHE DENIES NAUSEA; MEAL INTAKES HAVE IMPROVED AT 75-100%. LIQUID INTAKE IS GOOD. SHE IS CONTINENT OF BOWEL AND BLADDER. NO DIARRHEA. NO CHILLS OR FEVER. VOICE REMAINS HOARSE DUE TO SORE THROAT. HYDRATION STATUS IS GOOD. SKIN IS INTACT. A FEW SCATTERED BRUISES ARE NOTED TO THE FOREARMS. MD EMMANUEL REYNOSO APRN
--- NOTE | 2019-06-06 09:59 | ECHO2D ---
Date of Exam: 06/03/19 Ordering Physician: DR. FRANCIA CHEN Room #: [id number] Reason for Echo: SHORT OF AIR, ABNORMAL EKG M-Mode Normal Adult Results LV Dimensions Normal Adult Results AoV Opening excursions >1.6 >1.6 LVEDD-base- 3.5-5.8 4.9 Ao root dimensions 2.0-3.7 2.9 LVESD-base- 3.1-4.6 L. Atrium dimensions 1.9-3.8 3.9 Post. Wall thickness 0.8-1.1 1.2 IV septum (thickness) 0.7-1.2 1.1 Post. Wall excursion 0.72-1.3 NORMAL Septal motion NORMAL Systolic motion R. Ventricular cavity 1.5-2.0 NORMAL LVEF 60% 59% Paradoxical septal wall motion NORMAL 2-D : 2-D M Mode Echocardiogram was performed using apical four chamber and left parasternal long and short axis views. Mitral, tricuspid and aortic valves appear to be normal. Contractility of the left ventricle seems to be normal, so is the cavity size. Left atrial cavity size and aortic root appear to be normal. There is no pericardial effusion. There is no thrombus noted in the left ventricle or left atrial cavity. No mitral valve prolapse noted. M-MODE: MV: NORMAL AV: NORMAL TV: NORMAL PV: CHAMBER SIZE: NORMAL WALL MOTION: NORMAL PERICARDIUM: NORMAL INTERPRETATION: 1. NORMAL 2 "D" "M" MODE ECHO MTDD
--- NOTE | 2019-06-06 13:55 | DS ---
DATE OF SERVICE: 06/03/19 FINAL DIAGNOSIS: 1. PNEUMONIA, RIGHT LOWER LOBE AND LINGULA 2. MIGRAINES 3. GERD 4. RIGHT BREAST LUMP 5. CHOLECYSTECTOMY 6. TONSILLECTOMY 7. LUMPECTOMY, RIGHT BREAST 2018 ([place]) LAST VITALS Temp Pulse Resp BP Pulse Ox 97.7 F 86 16 117/72 98 06/03/19 04:54 06/03/19 04:54 06/03/19 04:54 06/03/19 04:54 04:54 DISCHARGE INSTRUCTIONS: AN APPOINTMENT IS SCHEDULED WITH RICH VU APRN ON AT 2:30 PLEASE HAVE CXR DONE AT [facility] PRIOR TO YOUR APPOINTMENT AN APPOINTMENT IS SCHEDULED AT [facility] ON AT 10:30 FOR A BILATERAL MAMMOGRAM, FOLLOWED BY A RIGHT BREAST ULTRASOUND AND THEN AN APPOINTMENT WITH THE PROVIDER, RADHA DAMON. MEDICATIONS AT DISCHARGE: Albuterol Sulfate (Proair Hfa) 2 puff IH QID PRN PRN Reason: shortness of breath/wheezing Prednisone 10 mg PO BID BRIANA for 5 days Levaquin 500 MG PO DAILY FOR 5 DAYS NEW PRESCRIPTIONS: PREDNISONE 10 MG BID FOR 5 DAYS TAKE WITH FOOD LEVAQUIN 500 MG DAILY FOR 5 DAYS PROAIR HFA 2 PUFFS TID UNTIL COUGH SUBSIDES AND THEN QID PRN DISCONTINUED MEDICATIONS: NONE DIET INSTRUCTIONS: REGULAR TOLERATED, DRINK LOTS OF LIQUIDS (WATER) ACTIVITY: AVOID OUTSIDE ACTIVITY IN EXTREME HEAT/HUMIDITY REST THIS WEEK-END AVOID CROWDS SMOKING: NOT APPLICABLE DISEASE SPECIFIC EDUCATION: PNEUMONIA PRESCRIPTIONS STEROIDS AND RISK OF GI IRRITATION HOSPITAL COURSE: This is a white female who presented to the emergency room with fever of 101, coughing for the past two to three days. CT scan showed right multifocal lower lobe pneumonia. She was admitted. She has multiple allergies, was given Rocephin in the emergency room with no problem. However, she described to me that with Penicillins and Cephalosporin. She had had severe rash and itching. I then placed her on Levaquin 750 mg IV daily along with Solu-Cortef 100 mg IV q.12. I started her on Xopenex neb treatments q.6hr scheduled. Initiallly had elevated liver enzymes in the 70s and 90s. I did do a lipid panel which was fairly normal. I do believe the elevated liver function is just a result of the infection. She had a repeat chest x-ray yesterday which showed some improvement. She did run a fever for the first two days. She has had some hoarseness which has since improved with the steroids. She had somewhat of an abnormal EKG likely due to lead placement. She is obese, large breasted young lady and I do believe they had some problems with the lead placement. Dr. Calvo did do an echo today prior to discharge and it was normal. Also to be noted on the CT scan done in the emergency room it was noted that she had a right breast mass. When questioned about this she stated that she had had a lumpectomy the year before at the [facility] however she had not had a repeat mammogram because she did not make the appointment. She had not followed up at the [facility]. We have arranged for her to have an appointment next with the [facility]. She is to see the physician up there as well as to have a diagnostic mammogram and an ultrasound. We have stressed this importance to her she needs to followup with this. She did state that her previous lumpectomy last year had been benign however she has stated that she has not had a primary care provider for over the past year. Also due to this fact, we have scheduled her to see Rich at the [facility] on Thursday for which she is also scheduled to have a repeat chest x-ray. She also stated that she had tried to establish care at the [facility] with Leonor Osei on [address] but couldn't get an appointment until July. Case Management tried to make a followup appointment from hospitalization there and was unable to get an appointment within the next week so she will followup with the [facility] here at [place] and then if she wishes she will followup thereafter at [address] if that is where she wishes to establish care. She will be sent home with Levaquin 750 mg p.o. daily for the next five days along with Prednisone 10 mg p.o. b.i.d. for the next five days. She had shortness of breath at first, significant cough since initiation of antibiotics in her hospital stay. Lung sounds have improved. She is no longer short of breath. She has been eating 75 to 100% of her meals. She has been up and about walking. Will discharge her in stable condition. She has been instructed of her followup appointments. Differential diagnosis for the right breast mass have been discussed. I have advised her of the importance of following up with the breast center next . She demonstrates understanding. She also demonstrates understanding the complications from pneumonia and has been instructed to go to the emergency room if fever returns and to keep her followup appointment with Rich at the [facility] next Thursday. TIME SPENT: More than 60 minutes. MILLIE
== END 2019-06-03 13:07 | disposition home or self-care (01) ==
LOC: ED 10:59 → UNDOADMIN 16:45 → MEDSURG B 16:45 → UNDODISIN 06-03 13:07
PROVIDERS: ADMIT Internal Medicine; ATTEND Internal Medicine
DX: N63.0 Unspecified lump in unspecified breast; J18.9 Pneumonia, unspecified organism